=== PATIENT | female | born 1980 | race African-American/Black ===

== ENCOUNTER 2019-01-02 07:18 | Inpatient (IN) | payer BC, MEDICAID ==
[~2019-01-02] VITALS: Ht 162.6 cm; Wt 131.5 kg
[2019-01-02] MEDS ORDERED: LISINOPRIL (07:31)
[2019-01-02] MEDS ORDERED: METOPROLOL (07:31)
[2019-01-02] MEDS ORDERED: PREDNISONE (07:31)
[2019-01-02] MEDS ORDERED: IPRATROPIUM BROMIDE (0.02%) 0.5MG/2.5ML NEB HHN STA (07:59)
[2019-01-02] MEDS ORDERED: METHYLPREDNISOLONE SOD SUCC 125 MG/2 ML VIAL IV STA (07:59)
[2019-01-02] MEDS ORDERED: ALBUTEROL (0.083%) 2.5MG/3ML NEB HHN STA ×2 (07:59→10:36)
[2019-01-02 08:23] LABS: BASOPHILS % 0.8 % (0.0-2.0); EOSINOPHILS % 0.3 % (0.0-5.0); HEMATOCRIT. 35.1 % (36.0-48.0); HEMOGLOBIN. 11.4 g/dL (12.0-16.0); LYMPHOCYTES % 49.9 % (20.0-50.0); MEAN CORPUSCULAR HEMOGLOBIN 27.4 pg (28.0-32.0); MEAN CORPUSCULAR VOLUME 84.6 fL (81.0-99.0); MEAN PLATELET VOLUME 7.8 fl (7.4-10.4); MONOCYTES % 10.8 % (2.0-8.0); NEUTROPHILS % 38.2 % (40.0-76.0); PLATELET 198 x1000/uL (130-400); RED BLOOD CELL COUNT 4.15 mill/uL (4.2-5.4); RED CELL DISTRIBUTION WIDTH 17.3 % (11.6-14.6)
[2019-01-02 08:25] LABS: CHLORIDE 107 mEq/L (98-107)
[2019-01-02] MEDS ORDERED: LIDOCAINE HCL/PF 1% 2ML VIAL ONE (10:58)
[2019-01-02 14:42] LABS: BG BASE EXCESS -0.2 mmol/L (-2.0-2.0); BG BILEVEL POS AIRWAY PRESSURE 15/5; BG CARBOXYHEMOGLOBIN 0.8 % (0.5-1.5); BG DEOXYHEMOGLOBIN 1.9 % (0.0-5.0); BG HCO3 ACT 23.3 mmol/L (22.0-26.0); BG METHEMOGLOBIN 0.5 % (0.0-1.5); BG OXYGEN SATURATION 98.1 % (92.0-98.5); BG OXYHEMOGLOBIN 96.8 % (94.0-97.0); BG PCO2 34.5 mmHg (35.0-45.0); BG PH 7.448 (7.350-7.450); BG PO2 115.7 mmHg (75.0-100.0); BG SAMPLE SITE RIGHT RADIAL; BG TOTAL HEMOGLOBIN 12.7 g/dL (12.0-18.0); BG VENT MODE MASK - BIPAP; BG VENT RATE 14 set
[2019-01-02] MEDS ORDERED: CLONIDINE 0.1MG TABLET PO PRN (16:45)
[2019-01-02 21:50] VITALS: BP 134/81
[2019-01-02 22:00] VITALS: BP 134/81
[2019-01-02] MEDS: METHYLPREDNISOLONE SOD SUCC 40 MG/ML VIAL IV SCH (22:23)
[2019-01-02] MEDS ORDERED: INFLUENZA VIRUS VACCINE(AFLURIA) 0.5ML SYR IM ONE (23:15)
[2019-01-02] MEDS ORDERED: PNEUMOCOCCAL 23-VAL P-SAC VAC 0.5 ML IM ONE (23:15)
[2019-01-03] VITALS: BP 125/75
[2019-01-03] MEDS: IPRATROPIUM/ALBUTEROL 0.5-3(2.5)MG/3ML NEB HHN SCH ×5 (01:32→20:49)
[2019-01-03 04:00] VITALS: BP 121/71
[2019-01-03] MEDS: METHYLPREDNISOLONE SOD SUCC 40 MG/ML VIAL IV SCH ×2 (05:51→18:30)
[2019-01-03 07:57] VITALS: BP 157/91
[2019-01-03] MEDS: LISINOPRIL 20MG TABLET PO SCH (10:16)
[2019-01-03] MEDS: ENOXAPARIN 40MG/0.4ML SYR SUBCUT SCH ×2 (10:18→21:06)
[2019-01-03 12:00] VITALS: BP 128/77
[2019-01-03] MEDS ORDERED: ACETAMINOPHEN WITH CODEINE 300/30MG TABLET PO PRN (13:45)
[2019-01-03] MEDS ORDERED: ACETAMINOPHEN 650MG/20.3ML UDC PO PRN (13:45)
[2019-01-03] MEDS ORDERED: AZITHROMYCIN 500 MG in DEXT 5% WATER 250 ML IV SCH (15:00)
[2019-01-03 15:48] VITALS: BP 136/79
[2019-01-03] MEDS ORDERED: CEFTRIAXONE 1,000 MG in DEXTROSE 5% WATER 50 ML IV SCH (16:00)
[2019-01-03 18:01] LABS: HEMATOCRIT. 38.3 % (36.0-48.0); HEMOGLOBIN. 12.2 g/dL (12.0-16.0); MEAN CORPUSCULAR HEMOGLOBIN 27.2 pg (28.0-32.0); MEAN CORPUSCULAR VOLUME 85.8 fL (81.0-99.0); MEAN PLATELET VOLUME 8.7 fl (7.4-10.4); PLATELET 211 x1000/uL (130-400); RED BLOOD CELL COUNT 4.47 mill/uL (4.2-5.4); RED CELL DISTRIBUTION WIDTH 17.5 % (11.6-14.6)
[2019-01-03 18:20] LABS: PLATELET ESTIMATE NORMAL
[2019-01-03 20:00] VITALS: BP 133/78
[2019-01-03] MEDS: ZOLPIDEM TARTRATE 5MG TABLET PO PRN (21:46)
[2019-01-04] MEDS: IPRATROPIUM/ALBUTEROL 0.5-3(2.5)MG/3ML NEB HHN SCH ×3 (00:46→09:24)
[2019-01-04 04:00] VITALS: BP_SYST 119; BP_SYST 128; BP_DIAS 67; BP_DIAS 70
[2019-01-04 06:32] LABS: BASOPHILS % 0.1 % (0.0-2.0); HEMATOCRIT. 36.5 % (36.0-48.0); HEMOGLOBIN. 11.6 g/dL (12.0-16.0); LYMPHOCYTES % 9.6 % (20.0-50.0); MEAN CORPUSCULAR HEMOGLOBIN 27.3 pg (28.0-32.0); MEAN CORPUSCULAR VOLUME 85.8 fL (81.0-99.0); MEAN PLATELET VOLUME 8.5 fl (7.4-10.4); NEUTROPHILS % 83.3 % (40.0-76.0); PLATELET 201 x1000/uL (130-400); RED BLOOD CELL COUNT 4.25 mill/uL (4.2-5.4); RED CELL DISTRIBUTION WIDTH 17.3 % (11.6-14.6)
[2019-01-04 06:38] LABS: CHLORIDE 106 mEq/L (98-107)
[2019-01-04] MEDS: METHYLPREDNISOLONE SOD SUCC 40 MG/ML VIAL IV SCH (06:47)
[2019-01-04 08:00] VITALS: BP 156/84
[2019-01-04] MEDS: ENOXAPARIN 40MG/0.4ML SYR SUBCUT SCH ×2 (08:48→21:06)
[2019-01-04] MEDS: LISINOPRIL 20MG TABLET PO SCH (08:48)
[2019-01-04 12:00] VITALS: BP 110/50
[2019-01-04] MEDS: AZITHROMYCIN 250 MG TABLET PO SCH (13:42)
[2019-01-04 16:00] VITALS: BP 112/76
[2019-01-04 20:00] VITALS: BP 139/87
[2019-01-04] MEDS: BUDESONIDE 0.5MG/2ML NEB HHN SCH (20:08)
[2019-01-04] MEDS: ALBUTEROL (0.083%) 2.5MG/3ML NEB HHN SCH (20:09)
[2019-01-04] MEDS: ZOLPIDEM TARTRATE 5MG TABLET PO PRN (21:12)
[2019-01-04] MEDS: PREDNISONE 20MG TABLET PO SCH (21:12)
[2019-01-05] VITALS: BP 120/70
[2019-01-05] MEDS: ALBUTEROL (0.083%) 2.5MG/3ML NEB HHN SCH ×2 (01:48→08:55)
[2019-01-05 04:00] VITALS: BP 102/56
[2019-01-05] MEDS: BUDESONIDE 0.5MG/2ML NEB HHN SCH ×2 (08:45→08:50)
[2019-01-05] MEDS: AZITHROMYCIN 250 MG TABLET PO SCH (09:15)
[2019-01-05] MEDS: LISINOPRIL 20MG TABLET PO SCH (09:16)
[2019-01-05] MEDS: ENOXAPARIN 40MG/0.4ML SYR SUBCUT SCH (09:16)
[2019-01-05] MEDS: PREDNISONE 20MG TABLET PO SCH (09:19)
[2019-01-05 12:00] VITALS: BP 131/79
== END 2019-01-05 13:30 | disposition home or self-care (01) | DRG 133 ==
LOC: ER 07:18 → 8WST 11:10 → EDBEDREQ 11:14 → CANRESERV 12:36 → ENRESERV 12:36 → CANBEDREQ 14:18 → SUPCPDRO 16:12 → ENRESERV 20:09
PROVIDERS: ADMIT Internal Medicine Critical Care Medicine; ATTEND Internal Medicine Critical Care Medicine
PROC: 5A09357 Assistance with Respiratory Ventilation, Less than 24 Consecutive Hours, Continuous Positive Airway Pressure (ICD-10-PCS; principal; 2019-01-02)
DX: J96.00 Acute respiratory failure, unspecified whether with hypoxia or hypercapnia (principal); E66.01 Morbid (severe) obesity due to excess calories; I11.9 Hypertensive heart disease without heart failure; J45.901 Unspecified asthma with (acute) exacerbation; R09.02 Hypoxemia; Z79.899 Other long term (current) drug therapy; Z68.42 Body mass index [BMI] 45.0-49.9, adult; Z23 Encounter for immunization; R07.89 Other chest pain
CPT/HCPCS: 36415; 36600; 71045; 80048; 82375; 82805; 83880; 84484; 85379; 87077; 87804; 90686; 90732; 93005; 93970; 94640; 94660; 96374; 99285; J0456; J0696; J1650; J2920; J2930; J3490; J7040; J7060; J7512; J7611; J7620; J7626

== ENCOUNTER 2019-07-16 10:34 | Emergency (ER) | payer MEDICAID ==
[~2019-07-16] VITALS: Ht 167.6 cm; Wt 100.0 kg
[~2019-07-16 10:34] MED LIST: LISINOPRIL; METOPROLOL
[2019-07-16] MEDS ORDERED: SODIUM CHLORIDE 0.9% 1,000 ML IV ONE (10:50)
[2019-07-16] MEDS ORDERED: MORPHINE SULFATE 4 MG/ML CPJ (NOT FOR IM USE) IV ONE (11:00)
[2019-07-16] MEDS ORDERED: ONDANSETRON HCL 4MG/2ML INJ IV ONE (11:00)
[2019-07-16 11:27] LABS: BASOPHILS % 0.8 % (0.0-2.0); EOSINOPHILS % 0.4 % (0.0-5.0); HEMATOCRIT. 39.4 % (36.0-48.0); LYMPHOCYTES % 39.8 % (20.0-50.0); MEAN CORPUSCULAR HEMOGLOBIN 28.7 pg (28.0-32.0); MEAN PLATELET VOLUME 7.3 fl (7.4-10.4); MONOCYTES % 8.2 % (2.0-8.0); NEUTROPHILS % 50.8 % (40.0-76.0); PLATELET 179 x1000/uL (130-400); RED BLOOD CELL COUNT 4.52 mill/uL (4.2-5.4); RED CELL DISTRIBUTION WIDTH 16.8 % (11.6-14.6)
[2019-07-16 11:32] LABS: CHLORIDE 102 mEq/L (98-107)
[2019-07-16 11:42] LABS: HCG SCREEN NEGATIVE
[2019-07-16 12:07] LABS: CLARITY URINE CLOUDY (CLEAR); COLOR URINE RED (YELLOW); KETONES URINE TRACE (NEGATIVE); LEUKOCYTE ESTERASE URINE 1+ (NEGATIVE); NITRITE URINE NEGATIVE (NEGATIVE); OCCULT BLOOD URINE 3+ (NEGATIVE); PH URINE 5.5 (4.5-8.0); PROTEIN URINE 1+ (NEGATIVE); SPECIFIC GRAVITY URINE 1.022 (1.005-1.030); UROBILINOGEN URINE 0.2 E.U./dL (0.2-1.0)
[2019-07-16 16:24] VITALS: BP 134/78
== END 2019-07-16 16:27 | disposition home or self-care (01) ==
LOC: ER 10:34
DX: N93.8 Other specified abnormal uterine and vaginal bleeding (principal); I10 Essential (primary) hypertension
CPT/HCPCS: 36415; 76830; 76856; 80053; 81003; 84703; 85025; 86850; 86900; 86901; 96374; 96375; 99284; J2270; J2405; J7030; Z7610